=== PATIENT | male | born 1980 | race Caucasian/White ===

== ENCOUNTER 2016-06-19 18:57 | Emergency (ER) | payer SELFPAY ==
[~2016-06-19] VITALS: Ht 172.7 cm; Wt 71.0 kg
[2016-06-19 19:00] VITALS: BP 145/89; PULSE 105; RESP 18; TEMP 98.1; O2SAT 97
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
[2016-06-19] MEDS ORDERED: KETOROLAC TROMETHAMINE 60 MG/2 ML (IM) VIAL IM ONE (22:00)
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
[2016-06-19] MEDS ORDERED: IBUP800T23 PO (22:45)
== END 2016-06-19 22:56 | disposition home or self-care (01) ==
LOC: NEPB 18:57
DX: S46.912A Strain of unspecified muscle, fascia and tendon at shoulder and upper arm level, left arm, initial encounter (principal); S40.212A Abrasion of left shoulder, initial encounter; F17.200 Nicotine dependence, unspecified, uncomplicated; V13.4XXA Pedal cycle driver injured in collision with car, pick-up truck or van in traffic accident, initial encounter; Y93.55 Activity, bike riding
CPT/HCPCS: 73030; 96372; 99283; J1885

== ENCOUNTER 2016-10-15 19:46 | Emergency (ER) | payer OTHER ==
[~2016-10-15] VITALS: Ht 188 cm; Wt 80.0 kg
[~2016-10-15 19:46] MED LIST: IBUP800T23 PO
[2016-10-15 20:20] VITALS: BP 144/67; PULSE 102; RESP 18; TEMP 97.9; O2SAT 98
[2016-10-15 20:20] LABS: AMPHETAMINE, URINE NEG (NEG); BARBITURATES, URINE NEG (NEG); COCAINE, URINE NEG (NEG)
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
[2016-10-15 23:00] VITALS: BP 144/66; PULSE 89; RESP 14; O2SAT 98
== END 2016-10-15 23:25 | disposition home or self-care (01) ==
LOC: NEDAMB 19:46 → NEPD 23:25
DX: F10.120 Alcohol abuse with intoxication, uncomplicated (principal)
CPT/HCPCS: 80307; 99284

== ENCOUNTER 2017-08-27 01:24 | Emergency (ER) | payer SELFPAY ==
[~2017-08-27] VITALS: Ht 177.8 cm; Wt 70.0 kg
[~2017-08-27 01:24] MED LIST changes: +IBUP1TAB7 PO; -IBUP800T23 PO
[2017-08-27 01:36] VITALS: BP 156/104; PULSE 98; RESP 18; TEMP 98.9; O2SAT 98
[2017-08-27] MEDS ORDERED: IOHEXOL 350 MG/ML 10 ML VIAL (for RAD DIAG) IVCONTRAST ONE (02:37)
[2017-08-27 02:55] VITALS: BP 142/88; PULSE 90; RESP 18; O2SAT 99
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
[2017-08-27] MEDS ORDERED: traMADol HCL 50 MG TAB PO ONE (03:30)
[2017-08-27] MEDS ORDERED: IBUP1TAB5 PO (04:08)
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
== END 2017-08-27 04:48 | disposition home or self-care (01) ==
LOC: NEPE 01:24
DX: S22.32XA Fracture of one rib, left side, initial encounter for closed fracture (principal); S02.2XXA Fracture of nasal bones, initial encounter for closed fracture; Y09 Assault by unspecified means
CPT/HCPCS: 70486; 71101; 71250; 74177; 99284; Q9967